=== PATIENT | male | born 1955 | race Caucasian/White ===

== ENCOUNTER 2018-01-17 10:02 | Observation (INO) ==
[2018-01-17] MEDS ORDERED: 0.9 % SODIUM CHLORIDE 1,000 ML IV ONE (10:26)
--- NOTE | 2018-01-17 10:31 | Emergency Department Note ---
General Adult HPI - General Chief complaint: Blood Pressure Problem Stated complaint: hypotension Time Seen by Provider: 01/17/18 10:05 Source: patient Mode of arrival: wheelchair Limitations: no limitations - History of Present Illness HPI Narrative: 62-year-old male presents for hypotension that he had a dialysis today. 2 days ago he was at a picnic and choked on some pulled pork. He eventually was able to get it down. He states he has some issues with swallowing once in a while. He denies any shortness of breath at this time. Blood pressures 2 days ago were normal and today they were 60/40 at dialysis. He did not receive dialysis today. He is afebrile. He states he feels "lite ". The way he explains that as he feels rundown. He denies any dizziness. He states he was not able to walk all the way home when he usually can and his friend had to give him a ride. He was drinking a lot of water yesterday. He states he has been able to get down food and water since his choking incident. He states he gets cramps in his legs at night and he had a cramp in his side once while he was here. He denies any chest pain. He does have a history of CHF about 3 or 4 years ago. Patient denies history of GI bleed. He has brown stuff around his lips and states that is the binder that he takes. This is a phosphate binder. This causes darkening of stools any states he has darkened stools - Related Data Home Medications Medication Instructions Recorded Confirmed allopurinol 100 mg tablet 100 mg PO TID tab 08/23/17 01/17/18 cinacalcet 30 mg tablet 30 mg PO .3xweekly tab 08/23/17 01/17/18 colchicine 0.6 mg tablet 0.6 mg PO QDAY 08/23/17 01/17/18 gabapentin 300 mg capsule 300 mg PO Q8H 08/23/17 01/17/18 pantoprazole 20 mg tablet,delayed 20 mg PO QDAY 08/23/17 01/17/18 release sennosides 8.6 mg tablet 8.6 mg PO QDAY PRN 08/23/17 01/17/18 sennosides 8.6 mg-docusate sodium 1 tab PO QHS PRN 08/23/17 01/17/18 50 mg tablet sertraline 50 mg tablet 50 mg PO QDAY 08/23/17 01/17/18 sucralfate 1 gram tablet 2 g PO BID 08/23/17 01/17/18 sucroferric oxyhydroxide 500 mg 500 mg PO .five times daily tab 08/23/17 chewable tablet Previous Rx's Medication Instructions Recorded vitamin B complex-vitamin C 100 1 tab-cap PO QDAY #90 tab 01/20/16 mg-folic acid 1 mg tablet amoxicillin 500 mg-potassium 1 tab PO QDAY 10 Days #10 tab 04/02/16 clavulanate 125 mg tablet clopidogrel 75 mg tablet 75 mg PO QDAY #90 tab 10/11/17 pravastatin 40 mg tablet 40 mg PO QHS #90 tab 10/11/17 Allergies Allergy/AdvReac Type Severity Reaction Status Date / Time No Known Drug Allergies Allergy Verified 03/25/15 09:17 Review of Systems All systems ED: reviewed and negative except as stated. Past Medical History - Past Medical History Medical history: Reports: CHF, other (dialysis). Denies: DM Psychiatric history: Reports: no psych history Surgical history ED: Reports: other (dialysis fistula) Family history: Reports: non-contributory - Social History smoking status: Current every day smoker Physical Exam Limitations: no limitations General appearance: alert, in no apparent distress Head: atraumatic Eye: Present: normal appearance. Absent: conjunctival injection ENT: mucous membranes dry Neck: Present: normal inspection, full ROM Chest: Present: normal inspection, symmetric chest wall rise Respiratory: Present: other (decreased lung sounds left lower lobe) Cardiovascular: Present: regular rate, normal heart sounds Abdominal: Present: soft, normal bowel sounds. Absent: tenderness Extremities: Present: normal inspection, full ROM Neurological: Present: alert, oriented X3 Psychiatric: Present: normal affect, normal mood Skin: Present: warm, dry, intact Course Course Narrative: Patient's blood pressure responded very well to 1 L of fluids Vital Signs Temperature 97.5 F 01/17/18 10:03 Pulse Rate 78 01/17/18 10:03 Respiratory Rate 18 01/17/18 10:03 Blood Pressure 75/49 01/17/18 10:03 Pulse Oximetry (%) 99 01/17/18 10:03 Temperature 97.5 F 01/17/18 10:03 Pulse Rate 63 01/17/18 12:16 Respiratory Rate 16 01/17/18 13:16 Blood Pressure 112/70 01/17/18 13:56 Pulse Oximetry (%) 96 01/17/18 12:16 Medical Decision Making - [facility] Narrative Medical decision making narrative: Due to elevated lactic acid and pro-calcitonin the patient will be admitted and given IV antibiotics. He responded well to the fluid bolus. Dr. Downs was called and she is concerned that he will get more sick if he goes home. He is not eating and drinking very much. His urine looked okay as well as his chest x -ray but he has significant fibrosis. He also has a pretty wet cough. - Lab Data Lab results reviewed: Yes I reviewed the patient's lab results. Result diagrams: 01/17/18 10:50 01/17/18 10:50 Lab Results 01/17/18 01/17/18 01/17/18 Range/Units 10:50 10:50 10:50 WBC (4.5-11.0) K/mcL RBC (4.50-5.90) M/mcL Hgb (13.5-16.5) g/dL Hct (41.0-55.0) % MCV (80.0-100.0) fL MCH (26.0-34.0) pg MCHC (31.0-36.0) g/dL RDW (11.5-14.5) % Plt Count (140-440) K/mcL MPV (7.4-10.4) fL Total Counted Seg Neutrophils % (38-78) % Band Neutrophils % Lymphocytes % (15-49) % Monocytes % (Manual) (1-12) % Eosinophils % (Manual) (0-7) % Platelet Estimate (NORMAL) RBC Morphology (NORMAL) Anisocytosis (NONE SEEN) VBG Lactic Acid 3.0 H (0.5-2.2) mmol/L Sodium 141 (133-145) mmol/L Potassium 4.0 (3.3-5.1) mmol/L Chloride 93 L (96-108) mmol/L Carbon Dioxide 26 (22-30) mmol/L Anion Gap 22.0 H (8-16) BUN 41 H (8-23) mg/dl Creatinine 7.7 H* (0.7-1.2) mg/dl GFR Calculation 7 Glucose 91 (70-105) mg/dL Calcium 8.8 (8.6-10.4) mg/dl Total Bilirubin 0.3 (0.0-1.0) mg/dL AST 15 (0-37) U/l ALT 9 (0-40) U/l Alkaline Phosphatase 152 H (39-117) U/L Troponin T (0-0.03) ng/ml NT-Pro-B Natriuret Pep 2993.0 H (0-125) pg/ml Total Protein 7.6 (5.9-8.4) gm/dL Albumin 4.4 (3.2-5.2) gm/dL Globulin 3.2 (2.2-3.7) gm/dL Albumin/Globulin Ratio 1.4 (1.0-2.3) Procalcitonin 0.64 (<0.10) ng/mL Urine Color Urine Appearance Urine pH (5.0-9.0) Ur Specific [place] (1.000-1.035) Urine Protein (NEG) mg/dL Urine Glucose (UA) (NEG) mg/dL Urine Ketones (NEG) mg/dL Urine Occult Blood (<0.03) mg/dL Urine Nitrate (NEG) Urine Bilirubin (NEG) mg/dL Urine Urobilinogen (NEG) mg/dL Ur Leukocyte Esterase (NEG) /uL Urine RBC (0-1) /hpf Urine WBC (0-4) /hpf Ur Squamous Epith Cells (0-4) /hpf Urine Bacteria (0) /hpf Hyaline Casts (0-2) /lpf Ur Culture Indicated? 01/17/18 01/17/18 01/17/18 Range/Units 10:50 10:50 12:55 WBC 7.3 (4.5-11.0) K/mcL RBC 3.64 L (4.50-5.90) M/mcL Hgb 10.4 L (13.5-16.5) g/dL Hct 32.1 L (41.0-55.0) % MCV 88.3 (80.0-100.0) fL MCH 28.7 (26.0-34.0) pg MCHC 32.5 (31.0-36.0) g/dL RDW 19.8 H (11.5-14.5) % Plt Count 213 (140-440) K/mcL MPV 8.3 (7.4-10.4) fL Total Counted 100 Seg Neutrophils % 66 (38-78) % Band Neutrophils % Not Reportable Lymphocytes % 26 (15-49) % Monocytes % (Manual) 7 (1-12) % Eosinophils % (Manual) 1 (0-7) % Platelet Estimate Normal (NORMAL) RBC Morphology Abnorm A (NORMAL) Anisocytosis 1+ A (NONE SEEN) VBG Lactic Acid (0.5-2.2) mmol/L Sodium (133-145) mmol/L Potassium (3.3-5.1) mmol/L Chloride (96-108) mmol/L Carbon Dioxide (22-30) mmol/L Anion Gap (8-16) BUN (8-23) mg/dl Creatinine (0.7-1.2) mg/dl GFR Calculation Glucose (70-105) mg/dL Calcium (8.6-10.4) mg/dl Total Bilirubin (0.0-1.0) mg/dL AST (0-37) U/l ALT (0-40) U/l Alkaline Phosphatase (39-117) U/L Troponin T 0.06 H* (0-0.03) ng/ml NT-Pro-B Natriuret Pep (0-125) pg/ml Total Protein (5.9-8.4) gm/dL Albumin (3.2-5.2) gm/dL Globulin (2.2-3.7) gm/dL Albumin/Globulin Ratio (1.0-2.3) Procalcitonin (<0.10) ng/mL Urine Color Yellow Urine Appearance Hazy Urine pH 8.0 (5.0-9.0) Ur Specific [place] 1.012 (1.000-1.035) Urine Protein 100 A (NEG) mg/dL Urine Glucose (UA) Negative (NEG) mg/dL Urine Ketones Neg (NEG) mg/dL Urine Occult Blood 0.03 A (<0.03) mg/dL Urine Nitrate Neg (NEG) Urine Bilirubin Neg (NEG) mg/dL Urine Urobilinogen Neg (NEG) mg/dL Ur Leukocyte Esterase Neg (NEG) /uL Urine RBC 3 H (0-1) /hpf Urine WBC 2 (0-4) /hpf Ur Squamous Epith Cells 0 (0-4) /hpf Urine Bacteria 0 (0) /hpf Hyaline Casts 1 (0-2) /lpf Ur Culture Indicated? No - Radiology Data Radiology results reviewed: Yes I reviewed the patient's radiology results. Bilateral fibrosis and no acute abnormality is identified Disposition Pt seen by [employer] [facility]/PA only: No Clinical Impression: Elevated lactic acid level, Hypotension, Dehydration Disposition: Xfer As Outpt/Obs ([facility]) Condition: Fair Referrals: Meghan Mariscal MD [Primary Care Provider] -
--- NOTE | 2018-01-17 10:54 | XRay Report ---
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 Densely calcified pleural plaques surround the left lung. Left lung volume is small. The calcification obscures underlying lung parenchyma. There is milder parenchymal scarring in the right upper lobe with upward retraction of the right hilum. These findings are chronic. No acute infiltrate is identified and there are no radiopaque foreign bodies. The heart size is normal. The spine is a severe kyphotic curvature. There has been no change since 03/26/15. IMPRESSION: Bilateral fibrosis and no acute abnormality is identified. Interpreted and Authenticated by: Rush Shabazz 01/17/18
[2018-01-17 11:36] LABS: Mean Cell Volume 88.3 fL (80.0-100.0); Mean Corpuscular HGB Conc 32.5 g/dL (31.0-36.0); Mean Corpuscular Hemoglobin 28.7 pg (26.0-34.0); Platelet Count 213 K/mcL (140-440); RBC 3.64 M/mcL (4.50-5.90); Red Cell Distribution Width 19.8 % (11.5-14.5)
[2018-01-17] MEDS ORDERED: 0.9 % SODIUM CHLORIDE 500 ML IV ONE (12:00)
[2018-01-17 12:01] LABS: ALT/SGPT 9 U/l (0-40); Albumin 4.4 gm/dL (3.2-5.2); Albumin/Globulin Ratio 1.4 (1.0-2.3); Alkaline Phosphatase 152 U/L (39-117); Blood Urea Nitrogen 41 mg/dl (8-23)
[2018-01-17 12:38] LABS: Anisocytosis 1+ (NONE SEEN); Eosinophils % (Manual) 1 % (0-7); Lymphocytes % 26 % (15-49); Monocytes % (Manual) 7 % (1-12); Platelet Estimate NORMAL (NORMAL); RBC Morphology ABNORM (NORMAL); Segmented Neutrophils % 66 % (38-78)
[2018-01-17] MEDS ORDERED: PIPERACILLIN SODIUM/TAZOBACTAM 2.25 GM in DEXTROSE 5% IN WATER 50 ML IV SCH (13:15)
[2018-01-17 13:27] LABS: Appearance,Urine HAZY; Bacteria,Urine 0 /hpf (0); Bilirubin,Urine NEG (NEG); Color,Urine YELLOW; Glucose,Urine (UA) NEGATIVE (NEG); Leukocyte Esterase,Urine NEG /uL (NEG); Protein,Urine 100 mg/dL (NEG); Specific Gravity,Urine 1.012 (1.000-1.035); Urine Blood 0.03 mg/dL (<0.03); Urine Hyaline Cast 1 /lpf (0-2); Urine RBC 3 /hpf (0-1); Urine Squamous Epithelial Cell 0 /hpf (0-4); Urine WBC 2 /hpf (0-4); Urobilinogen,Urine NEG (NEG)
[2018-01-17] MEDS ORDERED: GABAPENTIN 300 MG CAPSULE PO SCH (14:00)
--- NOTE | 2018-01-17 14:42 | Nephrology Consult Note ---
History of Present Illness - Reason for Consult Patient information: Note initiated : 01/17/18 at 2:38 pm Patient: Kevon Araujo 62 y/o M admitted on for hypotension. Chief Complaint: Hypotension Consult date: 01/17/18 end stage renal disease Requesting physician: April Almonte - Chief Complaint Hypotension - History of Present Illness Kevon Araujo is a 62-year-old male with end-stage renal disease on chronic hemodialysis (through left arm AV fistula, at [facility], on MWF, followed by Dr. 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 His blood pressure improved after 1.5 L IV fluids in ED. Review of Systems Constitutional: lethargy, weakness Nose, mouth and throat: dry mouth, no sore throat Cardiovascular: no chest pain, no palpatations Respiratory: no cough, no hemoptysis Gastrointestinal: dysphagia, no abdominal pain Genitourinary: no dysuria, no hematuria Musculoskeletal: no back pain, no neck pain Integumentary: no rash, no wounds Neurological: no confusion, no syncope Psychiatric: no anxiety, no panic attacks Endocrine: no cold intolerance, no heat intolerance Hematologic/Lymphatic: easy bruising Allergic/Immunologic: no tongue swelling, no uticaria Past History Past medical history: End-stage renal disease on chronic hemodialysis. Left arm AV fistula. Secondary hyperparathyroidism of renal origin. Chronic anemia due to kidney disease. Chronic cephalic vein outflow stenosis s/p stenting. History of gout. Barretts esophagus (last EGD on 04/28/15). Medications and Allergies Home Medications Medication Instructions Recorded Confirmed Type vitamin B complex-vitamin C 100 1 tab-cap PO QDAY #90 tab 01/20/16 01/17/18 Rx mg-folic acid 1 mg tablet amoxicillin 500 mg-potassium 1 tab PO QDAY 10 Days #10 tab 04/02/16 01/17/18 Rx clavulanate 125 mg tablet allopurinol 100 mg tablet 100 mg PO TID tab 08/23/17 01/17/18 History cinacalcet 30 mg tablet 30 mg PO .3xweekly tab 08/23/17 01/17/18 History colchicine 0.6 mg tablet 0.6 mg PO QDAY 08/23/17 01/17/18 History gabapentin 300 mg capsule 300 mg PO Q8H 08/23/17 01/17/18 History pantoprazole 20 mg tablet,delayed 20 mg PO QDAY 08/23/17 01/17/18 History release sennosides 8.6 mg tablet 8.6 mg PO QDAY PRN 08/23/17 01/17/18 History sennosides 8.6 mg-docusate sodium 1 tab PO QHS PRN 08/23/17 01/17/18 History 50 mg tablet sertraline 50 mg tablet 50 mg PO QDAY 08/23/17 01/17/18 History sucralfate 1 gram tablet 2 g PO BID 08/23/17 01/17/18 History sucroferric oxyhydroxide 500 mg 500 mg PO .five times daily tab 08/23/17 History chewable tablet clopidogrel 75 mg tablet 75 mg PO QDAY #90 tab 10/11/17 01/17/18 Rx pravastatin 40 mg tablet 40 mg PO QHS #90 tab 10/11/17 01/17/18 Rx Allergies Allergy/AdvReac Type Severity Reaction Status Date / Time No Known Drug Allergies Allergy Verified 03/25/15 09:17 Exam - Vital Signs Vital signs: Temp Pulse Resp BP Pulse Ox 97.5 F 63 16 112/70 96 01/17/18 10:03 01/17/18 12:16 01/17/18 13:16 01/17/18 13:56 01/17/18 12:16 - General Appearance General appearance: appears started age EENT: mucous membranes dry Neck: supple Respiratory: kyphosis, clear Cardiology: no edema, regular rate Gastrointestinal: no tenderness, no guarding Integumentary: warm and dry Neurologic: no focal deficit, alert and oriented x3 Musculoskeletal: no deformities Psychiatric: mood/affect appropriate, cooperative Results - Lab Results 01/17/18 10:50 01/17/18 10:50 Most recent lab results Calcium 8.8 mg/dl (8.6-10.4) 01/17/18 10:50 Assessment and Plan (1) ESRD (end stage renal disease) on dialysis Kevon Araujo is a 62-year-old male with end-stage renal disease on chronic hemodialysis (through left arm AV fistula, at [facility], on MWF, followed by Dr. 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 His blood pressure improved after 1.5 L IV fluids in ED. Hypotension due to dehydration and heat exposure, improved after 1.5 L NS. Dysphagia with history of Sparks's esophagus (last EGD on 04/28/15) and recent choke episode on 01/15/16. Plan: Hemodialysis today with Revaclear 300 dialyzer for 3 hours, QB/QD 300- 400/700-800, dialysate (Potassium 3, Bicarbonate 33, Calcium 2.5, Sodium 139), UF none, Heparin 2000 unit bolus, 1200 unit per hour. The patient seen and evaluated during hemodialysis at 17:00. Continue hemodialysis MWF. Status: Chronic Priority: Medium
[2018-01-17] MEDS ORDERED: ONDANSETRON 4 MG/2 ML VIAL IV PRN ×2 (14:53→15:52)
[2018-01-17] MEDS ORDERED: PANTOPRAZOLE 40 MG TABLET PO SCH (15:19)
[2018-01-17] MEDS ORDERED: SENNOSIDES/DOCUSATE SODIUM 1 TAB TABLET PO PRN ×2 (15:37→15:52)
[2018-01-17] MEDS ORDERED: SENNOSIDES 1 TABLET PO PRN ×2 (15:37→15:52)
[2018-01-17] MEDS ORDERED: CINACALCET 30 MG TABLET PO SCH ×2 (15:45→15:52)
[2018-01-17] MEDS ORDERED: Sucroferric Oxyhydroxide [Velphoro] 500 MG PO SCH (17:00)
[2018-01-17] MEDS: GABAPENTIN 300 MG CAPSULE PO SCH ×2 (17:05→22:49)
[2018-01-17] MEDS: Sucroferric Oxyhydroxide [Velphoro] 500 MG PO SCH ×2 (17:05→20:00)
--- NOTE | 2018-01-17 17:15 | Internal Med History&Physical ---
Medical - H&P: HPI Patient information: Note initiated : 01/17/18 at 3:22 pm Service Date, if different from initiated Date: [] Patient: Kevon Araujo 62 y/o M admitted on for hypotension. Chief Complaint: [] Chief complaint: hypotension, difficulty swallowing History of present illness: Mr. Araujo is a 62 year old M Dialysis patient with PMH significant of prior pericardial effusion (from NSAID use), HTN, Sparks esophagus, s/p stenting for cephalic vein outflow obstruction , CHF, have been experiencing dysphagia in the last 3-4 days (with choking incident eating a piece of pork on this past Monday picnic). He also reports sweating a lot while walking with his walker, apparently had been walking a lot more in the past several days (outside temperatures have been into the 100s degree Fahrenheit). He is sent to the ER to be evaluated for hypotension from dialysis unit, for concern of infection/sepsis. His blood pressure improved after 1.5 L of IV fluid, and he does recall some feeling of lightheadedness, but denies dizziness. Orthostatic check after IV fluid is still positive, consistent with dehydration. He'll be placed on observation, Dr. St of nephrology will proceed with his F dialysis. We will have speech therapy to evaluate his dysphagia, likely related to his Sparks esophagus. All systems: reviewed and no additional remarkable complaints except as stated - Constitutional Constitutional: Present: as per HPI, excessive sweating - Gastrointestinal Gastrointestinal: Present: belching, dysphagia Medical - H&P: PMH Medical history: pericardial effusion (from NSAID use), HTN, Sparks esophagus, CHF End-stage renal disease on chronic hemodialysis. Left arm AV fistula. Secondary hyperparathyroidism of renal origin. Chronic anemia due to kidney disease. Chronic cephalic vein outflow stenosis s/p stenting. History of gout. Barretts esophagus (last EGD on 04/28/15). Surgical history: Left arm AV fistula Family history: reviewed and not pertinent Smoking status: Current every day smoker Drug use: none Alcohol use: none Medical - H&P: Meds Home Medications Medication Instructions Recorded Confirmed Type vitamin B complex-vitamin C 100 1 tab-cap PO QDAY #90 tab 01/20/16 01/17/18 Rx mg-folic acid 1 mg tablet amoxicillin 500 mg-potassium 1 tab PO QDAY 10 Days #10 tab 04/02/16 01/17/18 Rx clavulanate 125 mg tablet allopurinol 100 mg tablet 100 mg PO TID tab 08/23/17 01/17/18 History cinacalcet 30 mg tablet 30 mg PO .3xweekly tab 08/23/17 01/17/18 History colchicine 0.6 mg tablet 0.6 mg PO QDAY 08/23/17 01/17/18 History gabapentin 300 mg capsule 300 mg PO Q8H 08/23/17 01/17/18 History pantoprazole 20 mg tablet,delayed 20 mg PO QDAY 08/23/17 01/17/18 History release sennosides 8.6 mg tablet 8.6 mg PO QDAY PRN 08/23/17 01/17/18 History sennosides 8.6 mg-docusate sodium 1 tab PO QHS PRN 08/23/17 01/17/18 History 50 mg tablet sertraline 50 mg tablet 50 mg PO QDAY 08/23/17 01/17/18 History sucralfate 1 gram tablet 2 g PO BID 08/23/17 01/17/18 History sucroferric oxyhydroxide 500 mg 500 mg PO .five times daily tab 08/23/17 History chewable tablet clopidogrel 75 mg tablet 75 mg PO QDAY #90 tab 10/11/17 01/17/18 Rx pravastatin 40 mg tablet 40 mg PO QHS #90 tab 10/11/17 01/17/18 Rx Allergies Allergy/AdvReac Type Severity Reaction Status Date / Time No Known Drug Allergies Allergy Verified 03/25/15 09:17 Medical - H&P: Exam - Constitutional Vitals: Temp Pulse Resp BP Pulse Ox 97.5 F 62 18 103/67 97 01/17/18 10:03 01/17/18 15:01 01/17/18 15:16 01/17/18 15:16 01/17/18 15:01 General appearance: cooperative, no acute distress - Head Head exam: Present: atraumatic, normocephalic - Eye Eye exam: Present: EOMI Pupils: Present: normal accommodation, PERRL - ENT ENT exam: Present: mucous membranes dry - Neck Neck exam: Present: full ROM. Absent: lymphadenopathy, meningismus - Respiratory Respiratory exam: Absent: accessory muscle use Additional comments: Fibrotic crackles, left > right - Cardiovascular Cardiovascular exam: Present: +S1, +S2. Absent: gallop, rubs - GI/Abdominal GI/Abdominal exam: Present: normal bowel sounds, soft. Absent: guarding, rebound, tenderness - Extremities Exam Additional comments: No clubbing, cyanosis, nor edema, thrill at left upper arm AV fistula - Neurological Exam Neurological exam: Present: alert, CN II-XII intact, oriented X3 Additional comments: Problem in articulation, his baseline - Skin Skin exam: Present: dry, intact, warm Medical - H&P: Reslt - Labs CBC & Chem 7: 01/17/18 10:50 01/17/18 10:50 Labs: Short CBC 01/17/18 Range/Units 10:50 WBC 7.3 (4.5-11.0) K/mcL Hgb 10.4 L (13.5-16.5) g/dL Hct 32.1 L (41.0-55.0) % Plt Count 213 (140-440) K/mcL BMP 01/17/18 10:50 Sodium 141 Potassium 4.0 Chloride 93 L Carbon Dioxide 26 BUN 41 H Creatinine 7.7 H* Glucose 91 Calcium 8.8 Cardiac Enzymes 01/17/18 Range/Units 10:50 Troponin T 0.06 H* (0-0.03) ng/ml Liver Function 01/17/18 Range/Units 10:50 Total Bilirubin 0.3 (0.0-1.0) mg/dL AST 15 (0-37) U/l ALT 9 (0-40) U/l Alkaline Phosphatase 152 H (39-117) U/L Albumin 4.4 (3.2-5.2) gm/dL Urine 01/17/18 Range/Units 12:55 Urine Color Yellow Urine Appearance Hazy Urine pH 8.0 (5.0-9.0) Ur Specific [place] 1.012 (1.000-1.035) Urine Protein 100 A (NEG) mg/dL Urine Glucose (UA) Negative (NEG) mg/dL Medical - H&P: A/P (1) Hypotension Problem details: Likely secondary to combination of dehydration, heat stroke, inadequate intake due to dysphagia. Current visit: Yes Status: Acute (2) Dehydration Current visit: Yes Status: Acute (3) Dysphagia Current visit: Yes Status: Acute (4) ESRD (end stage renal disease) on dialysis Current visit: Yes Status: Chronic - Narrative A/P Narrative: After gentle fluid rehydration, he can be dialyzed with Dr. St. We'll have speech therapy to evaluate his dysphagia, observationtelemetry.
[2018-01-17] MEDS ORDERED: IPRATROPIUM/ALBUTEROL 3 ML AMPUL.NEB NEB SCH (19:00)
[2018-01-17 19:33] LABS: Creatine Kinase MB 2.3 ng/ml (0-4.9)
[2018-01-17] MEDS: IPRATROPIUM/ALBUTEROL 3 ML AMPUL.NEB NEB SCH (20:18)
[2018-01-17] MEDS ORDERED: SIMVASTATIN 20 MG TABLET PO SCH (21:00)
[2018-01-17] MEDS ORDERED: SUCRALFATE 1 GM TABLET PO SCH (21:00)
[2018-01-17] MEDS ORDERED: ALLOPURINOL 100 MG TABLET PO SCH (21:00)
[2018-01-17] MEDS ORDERED: PRAVASTATIN 40 MG TABLET PO SCH (21:00)
[2018-01-17] MEDS: ALLOPURINOL 100 MG TABLET PO SCH (21:30)
[2018-01-17] MEDS: SUCRALFATE 1 GM TABLET PO SCH (21:30)
[2018-01-17] MEDS ORDERED: 0.9 % SODIUM CHLORIDE 10 ML SYRINGE IV SCH (22:00)
[2018-01-17] MEDS: PIPERACILLIN SODIUM/TAZOBACTAM 2.25 GM in DEXTROSE 5% IN WATER 50 ML IV SCH (22:48)
[2018-01-17] MEDS: 0.9 % SODIUM CHLORIDE 10 ML SYRINGE IV SCH (22:50)
[2018-01-18 00:10] LABS: Creatine Kinase 94 IU/L (24-195); Creatine Kinase MB 2.5 ng/ml (0-4.9)
[2018-01-18] MEDS: IPRATROPIUM/ALBUTEROL 3 ML AMPUL.NEB NEB SCH ×2 (00:23→10:09)
[2018-01-18] MEDS: GABAPENTIN 300 MG CAPSULE PO SCH (05:29)
[2018-01-18] MEDS: 0.9 % SODIUM CHLORIDE 10 ML SYRINGE IV SCH (05:30)
--- NOTE | 2018-01-18 07:08 | Nephrology Progress Note ---
Subjective Patient information: Note initiated : 01/18/18 at 7:05 am Kevon Araujo is a 62-year-old male with end-stage renal disease on chronic hemodialysis (through left arm AV fistula, at [facility], on MWF, followed by Dr. Downs ), chronic cephalic vein outflow stenosis s/p stenting, history of gout, Barretts esophagus (last EGD on 04/28/15), sent to [facility] ED on 01/17/18 from dialysis unit for hypotension and being admitted. His blood pressure improved after 1.5 L IV fluids in ED. Chief Complaint: Hypotension Principal diagnosis: Hypotension Interval history: Hemodialysis on 01/17/18 Pertinent ROS: Weakness Recent choking Objective - Vital Signs Vital signs: Vital Signs Temp Pulse Pulse Resp BP BP Pulse Ox 01/18/18 04:00 97.4 F 70 16 134/80 96 01/18/18 00:34 68 16 01/18/18 00:00 97.5 F 65 16 118/73 98 01/17/18 20:18 70 16 100 01/17/18 20:00 96.9 F L 68 18 113/67 96 01/17/18 19:38 97 F 74 113/67 01/17/18 19:10 70 138/87 01/17/18 18:49 70 01/17/18 18:37 73 149/89 01/17/18 18:11 73 155/108 01/17/18 17:39 77 162/103 01/17/18 17:14 68 167/106 01/17/18 16:45 97 F 60 157/95 01/17/18 15:35 97.8 F 62 18 103/67 97 01/17/18 15:23 90 01/17/18 15:16 18 103/67 01/17/18 15:15 15 01/17/18 15:01 62 13 105/66 97 01/17/18 14:53 97.8 F 60 20 130/79 90 01/17/18 14:46 67 13 130/74 99 01/17/18 14:43 72 116/71 98 01/17/18 14:40 63 123/68 100 01/17/18 14:37 64 11 L 124/69 99 01/17/18 14:31 65 127/70 98 01/17/18 14:16 67 101/57 99 01/17/18 14:01 116/63 01/17/18 13:56 112/70 01/17/18 13:46 112/70 01/17/18 13:16 16 123/72 01/17/18 13:11 12 01/17/18 13:01 15 130/71 01/17/18 12:46 12 121/72 01/17/18 12:31 18 114/72 01/17/18 12:16 63 13 120/71 96 01/17/18 12:04 62 15 113/76 96 01/17/18 12:01 60 12 113/76 96 01/17/18 11:46 63 15 112/68 96 01/17/18 11:32 61 11 L 100/63 95 01/17/18 11:31 62 13 100/63 94 01/17/18 10:03 97.5 F 78 18 75/49 99 Intake and Output 01/17/18 01/18/18 01/18/18 21:59 05:59 13:59 Intake Total 50 / 50 290 / 290 Output Total 0 / 0 Balance 50 / 50 290 / 290 Intake: IV 50 / 50 50 / 50 Zosyn 2.25 gm In Dextrose 5% in 50 / 50 50 / 50 Water 50 ml @ 100 mls/hr IV Q12H NIKO Rx#:[id number] Oral 240 / 240 Output: Hemodialysis UF 0 / 0 Other: Weight 168 lb 8 oz Intake & Output: Intake & Output 01/17/18 01/18/18 01/18/18 21:59 05:59 13:59 Intake Total 50 / 50 290 / 290 Output Total 0 / 0 Balance 50 / 50 290 / 290 Weight 168 lb 8 oz Intake: IV 50 / 50 50 / 50 Zosyn 2.25 gm In Dextrose 5% in 50 / 50 50 / 50 Water 50 ml @ 100 mls/hr IV Q12H NIKO Rx#:[id number] Oral 240 / 240 Output: Hemodialysis UF 0 / 0 - General Appearance General appearance: fatigue EENT: mucous membranes dry Neck: supple Respiratory: no kyphosis Cardiology: no edema Gastrointestinal: no tenderness, no guarding Integumentary: warm and dry Neurologic: no focal deficit, alert and oriented x3 Musculoskeletal: no deformities Psychiatric: mood/affect appropriate, cooperative - Lab 01/17/18 10:50 01/17/18 10:50 Most recent lab results Calcium 8.8 mg/dl (8.6-10.4) 01/17/18 10:50 Assessment and Plan (1) ESRD (end stage renal disease) on dialysis End-stage renal disease on chronic hemodialysis (through left arm AV fistula, at [facility], on MWF, followed by Dr. Downs). Hypotension due to dehydration and heat exposure, improved after IV fluids. Dysphagia with history of Sparks's esophagus (last EGD on 04/28/15) and recent choke episode on 01/15/16. Plan: Continue hemodialysis MWF. Status: Chronic Priority: Medium
[2018-01-18] MEDS ORDERED: PANTOPRAZOLE 40 MG TABLET PO SCH (07:30)
--- NOTE | 2018-01-18 07:57 | XRay Report ---
HISTORY: Reason for Exam:f/u left Lower lobe density FINDINGS: Densely calcified pleural plaque surrounding the left lung. The plaque obscures underlying lung parenchyma. Left lung is smaller than the right. There is parenchymal scarring in the right upper lobe upper retraction of the mandy. The heart size appears within normal limits. Spine has a moderate kyphotic curvature. There has been no significant change since 01/17/18. Retrocardiac density is seen behind the heart. This may be a hiatus hernia. IMPRESSION: Stable pleural and parenchymal scarring. No acute infiltrate has developed. Interpreted and Authenticated by: Rush Shabazz 01/18/18
[2018-01-18] MEDS: SUCRALFATE 1 GM TABLET PO SCH (08:50)
[2018-01-18] MEDS: ALLOPURINOL 100 MG TABLET PO SCH (08:50)
[2018-01-18] MEDS: Sucroferric Oxyhydroxide [Velphoro] 500 MG PO SCH ×2 (08:50→11:26)
[2018-01-18] MEDS: PIPERACILLIN SODIUM/TAZOBACTAM 2.25 GM in DEXTROSE 5% IN WATER 50 ML IV SCH (08:51)
[2018-01-18] MEDS ORDERED: FOLIC ACID/VITAMIN B COMP W-C 1 TAB TABLET PO SCH ×2 (09:00)
[2018-01-18] MEDS ORDERED: SERTRALINE 50 MG TABLET PO SCH ×2 (09:00)
[2018-01-18] MEDS ORDERED: CLOPIDOGREL 75 MG TABLET PO SCH ×2 (09:00)
--- NOTE | 2018-01-18 12:32 | Discharge Summary ---
Medical - DS: Prov Patient information: Note initiated : 01/18/18 at 12:25 pm Service Date, if different from initiated Date: [] Patient: Kevon Araujo 62 y/o M admitted on 01/17/18 for Hypotension. Chief Complaint: [] Date of admission: 01/17/18 15:23 Discharge date: 01/18/18 (home) Primary care physician: Meghan Mariscal Admitting clinician: April Almonte Consults: 01/17/18 12:06 Consult to Physician [CONS] Stat Comment: Consulting Provider: Rachel Melendez Reason For Exam: Physician to Consult 01/17/18 13:07 Consult to Physician [CONS] Stat Comment: Consulting Provider: April Almonte Reason For Exam: Physician to Consult Attending physician on discharge: April Almonte Medical - DS: Meds - Discharge Medications Prescriptions: Pantoprazole Sodium [Protonix] 40 mg PO Q12 #30 tablet. Active and Home Medications: Home Medications vitamin B complex-vitamin C 100 mg-folic acid 1 mg tablet 1 tab-cap PO QDAY #90 tab 01/20/16 [Rx Confirmed 01/17/18 Last Taken Unknown] amoxicillin 500 mg-potassium clavulanate 125 mg tablet 1 tab PO QDAY 10 Days # 10 tab 04/02/16 [Rx Confirmed 01/17/18 Last Taken Unknown] allopurinol 100 mg tablet 100 mg PO TID tab 08/23/17 [History Confirmed Last Taken Unknown] cinacalcet 30 mg tablet 30 mg PO .3xweekly tab 08/23/17 [History Confirmed Last Taken Unknown] colchicine 0.6 mg tablet 0.6 mg PO QDAY 08/23/17 [History Confirmed 01/17/18 Last Taken Unknown] gabapentin 300 mg capsule 300 mg PO Q8H 08/23/17 [History Confirmed 01/17/18 Last Taken Unknown] pantoprazole 20 mg tablet,delayed release 20 mg PO QDAY 08/23/17 [History Confirmed 01/17/18 Last Taken Unknown] sennosides 8.6 mg tablet 8.6 mg PO QDAY PRN 08/23/17 [History Confirmed Last Taken Unknown] sennosides 8.6 mg-docusate sodium 50 mg tablet 1 tab PO QHS PRN 08/23/17 [ History Confirmed 01/17/18 Last Taken Unknown] sertraline 50 mg tablet 50 mg PO QDAY 08/23/17 [History Confirmed 01/17/18 Last Taken Unknown] sucralfate 1 gram tablet 2 g PO BID 08/23/17 [History Confirmed 01/17/18 Last Taken Unknown] sucroferric oxyhydroxide 500 mg chewable tablet 500 mg PO .five times daily tab 08/23/17 [History Confirmed 01/17/18 Last Taken Unknown] clopidogrel 75 mg tablet 75 mg PO QDAY #90 tab 10/11/17 [Rx Confirmed 01/17/18 Last Taken Unknown] pravastatin 40 mg tablet 40 mg PO QHS #90 tab 10/11/17 [Rx Confirmed 01/17/18 Last Taken Unknown] Medical - DS: Hosp Hospital course: Mr. Araujo is a 62 year old M Dialysis patient with PMH significant of prior pericardial effusion (from NSAID use), HTN, Sparks esophagus, s/p stenting for cephalic vein outflow obstruction , CHF, have been experiencing dysphagia in the last 3-4 days (with choking incident eating a piece of pork on this past Monday). He also reports sweating a lot while walking with his walker, apparently had been walking a lot more in the past several days (outside temperatures have been into the 100s degree Fahrenheit). He is sent to the ER to be evaluated for hypotension from dialysis unit, for concern of infection/sepsis. His blood pressure improved after 1.5 L of IV fluid, and he does recall some feeling of lightheadedness, but denies dizziness. Orthostatic check after IV fluid is still positive, consistent with dehydration. He'll be placed on observation, Dr. St of nephrology will proceed with his [facility] dialysis. He also received additional fluid rehydration and with dialysis and is completely asymptomatic the next day , therefore he is to be discharged home with his mother. He has been instructed to increase his PPI, Protonix to 40 mg by mouth twice a day, and follow with his PCP (Dr. Lupe Mariscal) to further evaluate and assess his dysphagia, possible outpatient speech evaluation, or outpatient GI evaluation. Discharge diagnosis: Hypotension Secondary discharge diagnosis: Dehydration Dysphagia with history of Sparks esophagus End-stage renal disease on dialysis History of pericardial effusion, due to NSAID use Kyphosis/scoliosis - Time Spent with Patient Total time spent providing and/or coordinating discharge services: Greater than 30 minutes Medical - DS: Exam - Constitutional Vitals: Vital Signs Temp Pulse Pulse Resp BP BP Pulse Ox 01/18/18 07:27 97.3 F 68 16 143/81 98 01/18/18 04:00 97.4 F 70 16 134/80 96 01/18/18 00:34 68 16 01/18/18 00:00 97.5 F 65 16 118/73 98 18 20:18 70 16 100 01/17/18 20:00 96.9 F L 68 18 113/67 96 01/17/18 19:38 97 F 74 113/67 01/17/18 19:10 70 138/87 01/17/18 18:49 70 01/17/18 18:37 73 149/89 01/17/18 18:11 73 155/108 01/17/18 17:39 77 162/103 01/17/18 17:14 68 167/106 01/17/18 16:45 97 F 60 157/95 01/17/18 15:35 97.8 F 62 18 103/67 97 18 15:23 90 01/17/18 15:16 18 103/67 01/17/18 15:15 15 01/17/18 15:01 62 13 105/66 97 01/17/18 14:53 97.8 F 60 20 130/79 90 01/17/18 14:46 67 13 130/74 99 01/17/18 14:43 72 116/71 98 01/17/18 14:40 63 123/68 100 01/17/18 14:37 64 11 L 124/69 99 18 14:31 65 127/70 98 01/17/18 14:16 67 101/57 99 01/17/18 14:01 116/63 01/17/18 13:56 112/70 01/17/18 13:46 112/70 01/17/18 13:16 16 123/72 01/17/18 13:11 12 01/17/18 13:01 15 130/71 01/17/18 12:46 12 121/72 01/17/18 12:31 18 114/72 Intake and Output 01/17/18 01/18/18 01/18/18 21:59 05:59 13:59 Intake Total 50 / 50 290 / 290 120 / 120 Output Total 0 / 0 Balance 50 / 50 290 / 290 120 / 120 Intake: IV 50 / 50 50 / 50 Zosyn 2.25 gm In Dextrose 5% in 50 / 50 50 / 50 Water 50 ml @ 100 mls/hr IV Q12H [facility] Rx#:[id number] Oral 240 / 240 120 / 120 Output: Hemodialysis UF 0 / 0 Other: Meal Breakfast Percent of Meal Consumed 100% Weight 168 lb 8 oz General appearance: no acute distress - Head Head exam: Present: atraumatic, normocephalic - Eye Eye exam: Present: EOMI Pupils: Present: normal accommodation, PERRL - ENT ENT exam: Present: mucous membranes moist - Neck Neck exam: Present: full ROM. Absent: lymphadenopathy, meningismus - Respiratory Respiratory exam: Absent: accessory muscle use Additional comments: Few crackles on the left, structural deformity with scoliosis-kyphosis - Cardiovascular Cardiovascular exam: Present: +S1, +S2. Absent: clicks, gallop, rubs - GI/Abdominal GI/Abdominal exam: Present: normal bowel sounds. Absent: guarding, rebound, tenderness - Extremities Exam Extremities exam: Present: full ROM. Absent: pedal edema, tenderness - Neurological Exam Neurological exam: Present: alert, CN II-XII intact, oriented X3 - Skin Skin exam: Present: dry, intact, warm Medical - DS: Data Procedures and tests throughout hospitalization: Hemodialysis with Dr. Jeffrey Labs on day of discharge: Labs from last 24 hours 01/17/18 01/17/18 01/17/18 23:20 23:20 17:00 Total Counted Seg Neutrophils % Lymphocytes % Monocytes % (Manual) Eosinophils % (Manual) Platelet Estimate RBC Morphology Anisocytosis Total Creatine Kinase 94 CK-MB (CK-2) 2.5 Troponin T 0.04 H* 0.05 H* Urine Color Urine Appearance Urine pH Ur Specific [place] Urine Protein Urine Glucose (UA) Urine Ketones Urine Occult Blood Urine Nitrate Urine Bilirubin Urine Urobilinogen Ur Leukocyte Esterase Urine RBC Urine WBC Ur Squamous Epith Cells Urine Bacteria Hyaline Casts Ur Culture Indicated? 01/17/18 01/17/18 01/17/18 17:00 12:55 10:50 Total Counted Seg Neutrophils % Lymphocytes % Monocytes % (Manual) Eosinophils % (Manual) Platelet Estimate RBC Morphology Anisocytosis Total Creatine Kinase 99 CK-MB (CK-2) 2.3 Troponin T 0.06 H* Urine Color Yellow Urine Appearance Hazy Urine pH 8.0 Ur Specific [place] 1.012 Urine Protein 100 A Urine Glucose (UA) Negative Urine Ketones Neg Urine Occult Blood 0.03 A Urine Nitrate Neg Urine Bilirubin Neg Urine Urobilinogen Neg Ur Leukocyte Esterase Neg Urine RBC 3 H Urine WBC 2 Ur Squamous Epith Cells 0 Urine Bacteria 0 Hyaline Casts 1 Ur Culture Indicated? No 01/17/18 10:50 Total Counted 100 Seg Neutrophils % 66 Lymphocytes % 26 Monocytes % (Manual) 7 Eosinophils % (Manual) 1 Platelet Estimate Normal RBC Morphology Abnorm A Anisocytosis 1+ A Total Creatine Kinase CK-MB (CK-2) Troponin T Urine Color Urine Appearance Urine pH Ur Specific [place] Urine Protein Urine Glucose (UA) Urine Ketones Urine Occult Blood Urine Nitrate Urine Bilirubin Urine Urobilinogen Ur Leukocyte Esterase Urine RBC Urine WBC Ur Squamous Epith Cells Urine Bacteria Hyaline Casts Ur Culture Indicated? Preliminary micro results at discharge 01/17/18 11:19 Blood Culture - Preliminary Blood 01/17/18 10:50 Blood Culture - Preliminary Blood Medical - DS: A/P - Patient/Caregiver Discharge Instructions Activity: ambulate only with your walker Diet: Renal/Consistent Carbs Additional Instructions: Continue your current schedule in the clinic with Dr. Downs. - Problem Maintenance (1) Hypotension Status: Acute Comment: Likely secondary to combination of dehydration, heat stroke, inadequate intake due to dysphagia. Qualifiers: Hypotension type: orthostatic hypotension Qualified Code(s): I95.1 - Orthostatic hypotension (2) Dehydration Status: Acute (3) Dysphagia Status: Acute Comment: Significant history of Sparks esophagus, benefit from increased PPI use (4) ESRD (end stage renal disease) on dialysis Status: Chronic - Follow up Plan Follow up with: Meghan Mariscal MD [Primary Care Provider] - 01/23/18 8:40 am Perla Downs MD [Physician] - Disposition: Home, Self-Care Prognosis: Fair Rehab Potential: Fair Overall status at discharge: patient is back to baseline
== END 2018-01-18 13:40 | disposition home or self-care (01) ==
LOC: ICU 10:02 → ED 10:02 → ICU 15:25
PROVIDERS: ADMIT Emergency Medicine; ATTEND Emergency Medicine